=== PATIENT | female | born 2000 | race Two or more races ===

== ENCOUNTER 2021-05-14 00:12 | Emergency (ER) | payer OTHER ==
[~2021-05-14] VITALS: Ht 160 cm; Wt 86.2 kg
[2021-05-14] MEDS ORDERED: KETO10TA2 PO (03:36)
== END 2021-05-14 03:56 ==
LOC: ER 00:12
DX: S93.401A Sprain of unspecified ligament of right ankle, initial encounter (principal); Y93.51 Activity, roller skating (inline) and skateboarding; Y92.89 Other specified places as the place of occurrence of the external cause

== ENCOUNTER 2021-11-29 13:07 | Inpatient (IN) | payer OTHER ==
[~2021-11-29] VITALS: Ht 157.5 cm; Wt 77.1 kg
[~2021-11-29 13:07] MED LIST: KETO10TA2 PO
== END 2021-12-01 20:49 | disposition home or self-care (01) | DRG 153 ==
LOC: ER 13:07 → MEDJ 11-30 06:03 → SEC-K 11-30 06:03 → MEDJ 11-30 07:47
PROVIDERS: ADMIT Internal Medicine; ATTEND Internal Medicine
PROC: BW40ZZZ Ultrasonography of Abdomen (ICD-10-PCS; principal; 2021-11-30)
PROC: BW2FY0Z Computerized Tomography (CT Scan) of Neck using Other Contrast, Unenhanced and Enhanced (ICD-10-PCS; 2021-11-30)
PROC: BN25YZZ Computerized Tomography (CT Scan) of Facial Bones using Other Contrast (ICD-10-PCS; 2021-11-30)
DX: J03.90 Acute tonsillitis, unspecified (principal); D72.828 Other elevated white blood cell count; R13.19 Other dysphagia; Z20.822 Contact with and (suspected) exposure to COVID-19

== ENCOUNTER 2022-08-24 19:12 | Emergency (ER) | payer OTHER ==
[~2022-08-24] VITALS: Ht 157.5 cm; Wt 68.0 kg
== END 2022-08-24 20:01 | disposition home or self-care (01) ==
LOC: ER 19:12
DX: M25.571 Pain in right ankle and joints of right foot (principal)

== ENCOUNTER → 2022-08-24 | Emergency (ER) | payer OTHER ==
[~2022-08-24] VITALS: Ht 157.5 cm; Wt 68.0 kg
== END | disposition left against medical advice (07) ==
LOC: ER 12:06
DX: Z53.21 Procedure and treatment not carried out due to patient leaving prior to being seen by health care provider (principal)

== ENCOUNTER 2023-01-09 00:50 | Emergency (ER) | payer OTHER ==
[~2023-01-09] VITALS: Ht 157.5 cm; Wt 72.6 kg
[2023-01-09] MEDS ORDERED: KETO10TA2 PO (03:47)
== END 2023-01-09 03:50 ==
LOC: ER 00:50
DX: S63.592A Other specified sprain of left wrist, initial encounter (principal); W19.XXXA Unspecified fall, initial encounter; Y93.89 Activity, other specified; Y92.821 Forest as the place of occurrence of the external cause; Y99.8 Other external cause status; M25.571 Pain in right ankle and joints of right foot; M54.50 Low back pain, unspecified

== ENCOUNTER → 2023-03-28 | Emergency (ER) | payer OTHER ==
[~2023-03-28] VITALS: Ht 162.6 cm; Wt 68.0 kg
[2023-03-28 13:00] LABS: HEMATOCRIT 41.4 % (36.0-45.00); MEAN CELL VOLUME 91.7 fL (80.00-100.00); MEAN CORPUSCULAR HEMOGLOBIN 31.1 pg (27.00-32.0); MEAN CORPUSCULAR HGB CONC 33.9 g/dl (32.0-36.0); PLATELET COUNT 375 K/uL (150-450); RED BLOOD COUNT 4.52 M/uL (4.00-6.00); RED CELL DISTRIBUTION WIDTH 12.6 % (11.5-14.5)
[2023-03-28 13:54] LABS: CALCIUM 9.7 mg/dL (8.5-10.1); CREATININE SERUM 0.7 mg/dL (0.55-1.02); GFR 103.69; POTASSIUM 3.55 mEq/L (3.5-5.1)
== END | disposition left against medical advice (07) ==
LOC: ER
PROVIDERS: General Practice
DX: Z53.21 Procedure and treatment not carried out due to patient leaving prior to being seen by health care provider (principal)

== ENCOUNTER 2024-01-24 22:13 | Emergency (ER) | payer OTHER ==
[~2024-01-24] VITALS: Ht 160 cm; Wt 72.6 kg
[2024-01-24 22:20] VITALS: BP 103/64; O2SAT 97
[2024-01-24] MEDS ORDERED: KETOROLAC TROMETHAMINE 60 MG VIAL IM ONE ×2 (23:00→23:03)
[2024-01-24] MEDS ORDERED: CEFTRIAXONE SODIUM 1,000 MG VIAL IM ONE (23:00)
[2024-01-24] MEDS ORDERED: CEFTRIAXONE SODIUM 1,000 MG VIAL ONE (23:03)
[2024-01-24 23:26] LABS: HEMATOCRIT 37.6 % (36.0-45.00); HEMOGLOBIN 13.2 g/dL (12.0-15.00); MEAN CELL VOLUME 90.5 fL (80.00-100.00); MEAN CORPUSCULAR HEMOGLOBIN 31.7 pg (27.00-32.0); PLATELET COUNT 381 K/uL (150-450); RED BLOOD COUNT 4.15 M/uL (4.00-6.00); RED CELL DISTRIBUTION WIDTH 12.4 % (11.5-14.5)
[2024-01-25 00:09] LABS: PH,URINE 6.5 (5.0-8.0); URINE APPEARANCE Clear; URINE BILIRRUBIN Negative (NEGATIVE); URINE BLOOD Small; URINE COLOR Yellow; URINE GLUCOSE Negative (NEGATIVE); URINE KETONE Negative (NEGATIVE); URINE LEUKOCYTE Moderate; URINE NITRATE Negative; URINE PROTEIN 30 (NEGATIVE); URINE UROBILINOGEN 0.2 E.U./dl
[2024-01-25 00:13] LABS: URINE BACTERIA 144.8 uL (0.0-1933); URINE EPITHELIAL CELLS 1.8 uL (0.0-38.8); URINE RBC 102.4 uL (0.0-20.8); URINE WBC 502.5 uL (0.0-23.2)
[2024-01-25] MEDS ORDERED: BACTRIM DS TAB1 EACH PO (00:19)
== END 2024-01-25 01:19 | disposition home or self-care (01) ==
LOC: ER 22:15
PROVIDERS: General Practice
DX: N39.0 Urinary tract infection, site not specified (principal)

== ENCOUNTER 2025-03-28 21:24 | Emergency (ER) | payer OTHER ==
[~2025-03-28] VITALS: Ht 160 cm; Wt 77.1 kg
[~2025-03-28 21:24] MED LIST changes: +BACTRIM DS TAB1 EACH PO
[2025-03-28] MEDS ORDERED: ONDANSETRON HCL 2 MG/ML VIAL IV ONE (22:45)
[2025-03-28] MEDS ORDERED: CEFTRIAXONE SODIUM 1,000 MG VIAL IV ONE (22:45)
[2025-03-28] MEDS ORDERED: METHYLPREDNISOLONE SOD SUCC 125 MG VIAL IV ONE (22:45)
[2025-03-28] MEDS ORDERED: FAMOtidine 10 MG/ML (4ML VIAL) IV PUSH ONE (22:45)
[2025-03-28] MEDS ORDERED: ONDANSETRON HCL 2 MG/ML VIAL ONE (23:10)
[2025-03-28] MEDS ORDERED: METHYLPREDNISOLONE SOD SUCC 125 MG VIAL ONE (23:11)
[2025-03-28] MEDS ORDERED: FAMOTIDINE/PF 20 MG/2 ML VIAL ONE (23:11)
[2025-03-28] MEDS ORDERED: CEFTRIAXONE SODIUM 1,000 MG VIAL ONE (23:11)
[2025-03-28] MEDS ORDERED: WATER FOR INJ.,BACTERIOSTATIC 30 ML VIAL IJ ONE (23:16)
[2025-03-28 23:53] LABS: BASO % 0.4 % (0.1-1.2); EOS # 0.04 (0.04-0.54); EOS % 0.2 % (0.7-7.0); LYMPH # 3.15 (1.18-3.74); LYMPH % 14.8 % (19.3-53.1); MEAN PLATELET VOLUME 9.20 fl (9.4-12.4); MONO # 1.57 (0.24-0.82); MONO % 7.4 % (4.7-12.5); NEUT # 16.30 (1.56-6.13); NEUT % 76.7 % (34.0-71.1); RED CELL DISTRIBUTION WIDTH 12.7 % (11.6-14.4)
[2025-03-29 00:41] LABS: ALT/SGPT 21.0 U/L (12-78); AST/SGOT 10.0 U/L (15-37); BILIRUBIN TOTAL 0.72 mg/dL (0.3-1.2); BUN CREA RATIO 19.0 (7.0-25.0); CREATININE SERUM 0.77 mg/dL (0.55-1.02); GFR 91.34; GLOBULINA 5.1 G/DL (2.4-3.5); GLUCOSE FASTING 89.0 mg/dL (65-100); OSMOLALITY SERUM 282.0 MOSM/KG (275-295)
[2025-03-29] MEDS ORDERED: ONDANSETRON HCL 2 MG/ML VIAL IV PRN (00:45)
[2025-03-29] MEDS ORDERED: MORPHINE SULFATE 2 MG/ML SYRINGE IV PRN (00:45)
[2025-03-29] MEDS ORDERED: ACETAMINOPHEN 500 MG GEL..CAP PO PRN (00:45)
[2025-03-29 00:51] LABS: COVID-19 AG NEGATIVE (NEGATIVE)
[2025-03-29] MEDS ORDERED: CEFTRIAXONE SODIUM 1,000 MG VIAL IV STA (05:40)
[2025-03-29] MEDS ORDERED: DEXAMETHASONE SODIUM PHOSP/PF 10 MG/ML VIAL IV SCH (06:00)
[2025-03-29] MEDS ORDERED: PIPERACILLIN/TAZOBACTAM SODIUM 3.375 GM in DEXTROSE 5 % IN WATER 100 ML IV SCH (06:00)
[2025-03-29] MEDS ORDERED: DICLOFENAC POTA50 MG PO (06:24)
[2025-03-29] MEDS ORDERED: AMOX-CLAV 875-1 EACH PO (06:24)
[2025-03-29] MEDS ORDERED: INTESTINEX680 M1 PO (06:24)
[2025-03-29] MEDS ORDERED: FAMOTIDINE/PF 20 MG/2 ML VIAL IV SCH (09:00)
[2025-03-29] MEDS ORDERED: PROMETHAZINE HCL 50 MG/ML AMPUL IM ONE (23:45)
== END 2025-03-29 09:51 | disposition home or self-care (01) ==
LOC: ER 21:24
PROVIDERS: General Practice
DX: J03.00 Acute streptococcal tonsillitis, unspecified (principal); Z20.822 Contact with and (suspected) exposure to COVID-19